=== PATIENT | male | born 1975 | race Caucasian/White ===

== ENCOUNTER → 2018-03-23 | Outpatient (CLI) | payer OTHER ==
[~2018-03-23] MED LIST: ASPIRIN325 PO; BYSTOLIC 5 MG5 M1 PO; IBUPROFEN 200200 M1 PO; NORCO 5-325 TA1 EACH PO; STRATTERA80 MG PO
== END ==
LOC: CAT 13:51
DX: Z13.6 Encounter for screening for cardiovascular disorders (principal); E78.00 Pure hypercholesterolemia, unspecified; Z82.49 Family history of ischemic heart disease and other diseases of the circulatory system

== ENCOUNTER → 2020-06-05 | Outpatient (CLI) | payer BC | LOC: SJCVCIMAG 10:19 | PROVIDERS: ATTEND Internal Medicine Cardiovascular Disease | DX: R07.9 Chest pain, unspecified (principal); R06.00 Dyspnea, unspecified; R53.83 Other fatigue ==